=== PATIENT | female | born 1940 | race American Indian/Alaskan Native ===

== ENCOUNTER 2018-09-08 18:03 | Emergency (ER) | payer MEDICARE ==
[2018-09-08 20:02] LABS: Hematocrit 39.1 % (30.3-42.9); Hemoglobin 13.2 gm/dl (10.1-14.3); Mean Corpuscular HGB Conc 34 % (30-34); Mean Corpuscular Volume 96 fl (79-97); Platelet Count 594 K/mm3 (140-440); Red Blood Count 4.06 M/mm3 (3.65-5.03); Red Cell Distribution Width 18.2 % (13.2-15.2)
--- NOTE | 2018-09-08 20:11 | Emergency Department Report ---
ED General Adult HPI - General Chief complaint: Weakness Stated complaint: GENERAL WEAKNESS Time Seen by Provider: 09/08/18 20:10 Source: patient, EMS Mode of arrival: Stretcher Limitations: Physical Limitation - History of Present Illness -: Gradual, days(s) (7 days) Severity scale (0 -10): 0 Associated Symptoms: loss of appetite, weakness (Generalized weakness) Treatments Prior to Arrival: none - Related Data Previous Rx's Medication Instructions Recorded Last Taken Type Cephalexin [Keflex Oral Liq 250 500 mg PO Q8HR 10 Days #1 bottle 09/09/18 Unknown Rx mg/5 ML] Ondansetron [Zofran Odt] 4 mg PO Q8HR PRN #20 tab.rapdis 09/09/18 Unknown Rx Allergies Allergy/AdvReac Type Severity Reaction Status Date / Time No Known Allergies Allergy Unverified 08/20/16 12:00 ED Review of Systems ROS: Stated complaint: GENERAL WEAKNESS Other details as noted in HPI Comment: All other systems reviewed and negative Constitutional: malaise, weakness. denies: chills, fever Eyes: denies: eye pain, eye discharge, vision change ENT: denies: ear pain, throat pain Respiratory: denies: cough, shortness of breath, wheezing Cardiovascular: denies: chest pain, palpitations Endocrine: no symptoms reported Gastrointestinal: denies: abdominal pain, nausea, diarrhea Genitourinary: denies: urgency, dysuria, discharge Musculoskeletal: denies: back pain, joint swelling, arthralgia Skin: denies: rash, lesions Neurological: denies: headache, weakness, paresthesias Psychiatric: denies: anxiety, depression Hematological/Lymphatic: denies: easy bleeding, easy bruising ED Past Medical Hx - Past Medical History Hx Psychiatric Treatment: Yes (Anxiety) Hx Asthma: Yes Hx COPD: Yes - Surgical History Additional Surgical History: Hysterectomy - Social History Smoking Status: Never Smoker Substance Use Type: None - Medications Home Medications: Home Medications Medication Instructions Recorded Confirmed Last Taken Type Cephalexin [Keflex Oral Liq 250 500 mg PO Q8HR 10 Days #1 bottle 09/09/18 Unknown Rx mg/5 ML] Ondansetron [Zofran Odt] 4 mg PO Q8HR PRN #20 tab.rapdis 09/09/18 Unknown Rx ED Physical Exam - General Limitations: Physical Limitation General appearance: alert, in no apparent distress, cachectic - Head Head exam: Present: atraumatic, normocephalic - Eye Eye exam: Present: normal appearance, PERRL, EOMI, conjunctival injection (Bilateral conjunctivitis.) Pupils: Present: normal accommodation - ENT ENT exam: Present: normal exam, mucous membranes moist - Neck Neck exam: Present: normal inspection, full ROM. Absent: tenderness, mening ismus - Respiratory Respiratory exam: Present: normal lung sounds bilaterally. Absent: respiratory distress - Cardiovascular Cardiovascular Exam: Present: regular rate, normal rhythm. Absent: systolic murmur, diastolic murmur, rubs, gallop - GI/Abdominal GI/Abdominal exam: Present: soft, normal bowel sounds - Rectal Rectal exam: Present: deferred - Extremities Exam Extremities exam: Present: normal inspection, full ROM, normal capillary refill. Absent: pedal edema - Back Exam Back exam: Present: normal inspection, full ROM. Absent: tenderness - Neurological Exam Neurological exam: Present: alert, oriented X3, CN II-XII intact, other (GCS = 15. NIHSS = 0.) - Psychiatric Psychiatric exam: Present: normal affect, normal mood - Skin Skin exam: Present: warm, dry, intact, normal color. Absent: rash ED Course Vital Signs 09/08/18 09/08/18 09/08/18 19:12 19:15 19:30 Temperature 98.2 F Pulse Rate 118 H 115 H 107 H Respiratory 18 18 16 Rate Blood Pressure 119/78 119/78 O2 Sat by Pulse 100 100 Oximetry 09/08/18 09/08/18 09/08/18 19:46 20:00 20:38 Temperature Pulse Rate 107 H 100 H 95 H Respiratory 13 15 12 Rate Blood Pressure 106/83 103/80 O2 Sat by Pulse 99 100 100 Oximetry 09/08/18 09/08/18 09/08/18 20:45 21:00 21:15 Temperature Pulse Rate 98 H 97 H 96 H Respiratory 13 17 14 Rate Blood Pressure 114/74 109/88 116/82 O2 Sat by Pulse 100 100 100 Oximetry 09/08/18 09/08/18 09/08/18 21:30 21:45 22:00 Temperature Pulse Rate 94 H 96 H 99 H Respiratory 13 19 14 Rate Blood Pressure 110/77 120/81 112/73 O2 Sat by Pulse 100 100 100 Oximetry 01/09/08/18 09/08/18 22:16 22:30 22:46 Temperature Pulse Rate 110 H 95 H 94 H Respiratory 16 16 13 Rate Blood Pressure 119/98 100/72 109/88 O2 Sat by Pulse 100 100 100 Oximetry 09/09/18 00:03 Temperature Pulse Rate Respiratory Rate Blood Pressure 103/78 O2 Sat by Pulse 100 Oximetry - Reevaluation(s) Reevaluation #1: 09/09/18 00:29 Patient is feeling much better and ready to be discharged home with her family. ED Medical Decision Making - Lab Data Result diagrams: 09/08/18 19:18 09/08/18 19:18 Lab Results 09/08/18 09/08/18 09/08/18 Range/Units 19:18 19:18 19:18 WBC 9.1 (4.5-11.0) K/mm3 RBC 4.06 (3.65-5.03) M/mm3 Hgb 13.2 (10.1-14.3) gm/dl Hct 39.1 (30.3-42.9) % MCV 96 (79-97) fl MCH 33 H (28-32) pg MCHC 34 (30-34) % RDW 18.2 H (13.2-15.2) % Plt Count 594 H (140-440) K/mm3 PT 13.0 (12.2-14.9) Sec. INR 0.94 (0.87-1.13) Sodium 140 (137-145) mmol/L Potassium 3.1 L (3.6-5.0) mmol/L Chloride 99.8 (98-107) mmol/L Carbon Dioxide 24 (22-30) mmol/L Anion Gap 19 mmol/L BUN 15 (7-17) mg/dL Creatinine 0.5 L (0.7-1.2) mg/dL Estimated GFR > 60 ml/min BUN/Creatinine Ratio 30 % Glucose 136 H (65-100) mg/dL POC Glucose (70-105) Calcium 10.4 H (8.4-10.2) mg/dL Magnesium 1.80 (1.7-2.3) mg/dL Total Creatine Kinase 72 (30-135) units/L TSH (0.270-4.200) mlU/mL Salicylates (2.8-20.0) mg/dL Acetaminophen (10.0-30.0) ug/mL Plasma/Serum Alcohol (0-0.07) % 09/08/18 09/08/18 09/08/18 Range/Units 19:18 19:18 19:18 WBC (4.5-11.0) K/mm3 RBC (3.65-5.03) M/mm3 Hgb (10.1-14.3) gm/dl Hct (30.3-42.9) % MCV (79-97) fl MCH (28-32) pg MCHC (30-34) % RDW (13.2-15.2) % Plt Count (140-440) K/mm3 PT (12.2-14.9) Sec. INR (0.87-1.13) Sodium (137-145) mmol/L Potassium (3.6-5.0) mmol/L Chloride (98-107) mmol/L Carbon Dioxide (22-30) mmol/L Anion Gap mmol/L BUN (7-17) mg/dL Creatinine (0.7-1.2) mg/dL Estimated GFR ml/min BUN/Creatinine Ratio % Glucose (65-100) mg/dL POC Glucose (70-105) Calcium (8.4-10.2) mg/dL Magnesium (1.7-2.3) mg/dL Total Creatine Kinase (30-135) units/L TSH 0.818 (0.270-4.200) mlU/mL Salicylates < 0.3 L (2.8-20.0) mg/dL Acetaminophen < 5.0 L (10.0-30.0) ug/mL Plasma/Serum Alcohol (0-0.07) % 09/08/18 09/08/18 Range/Units 19:18 19:26 WBC (4.5-11.0) K/mm3 RBC (3.65-5.03) M/mm3 Hgb (10.1-14.3) gm/dl Hct (30.3-42.9) % MCV (79-97) fl MCH (28-32) pg MCHC (30-34) % RDW (13.2-15.2) % Plt Count (140-440) K/mm3 PT (12.2-14.9) Sec. INR (0.87-1.13) Sodium (137-145) mmol/L Potassium (3.6-5.0) mmol/L Chloride (98-107) mmol/L Carbon Dioxide (22-30) mmol/L Anion Gap mmol/L BUN (7-17) mg/dL Creatinine (0.7-1.2) mg/dL Estimated GFR ml/min BUN/Creatinine Ratio % Glucose (65-100) mg/dL POC Glucose 126 H (70-105) Calcium (8.4-10.2) mg/dL Magnesium (1.7-2.3) mg/dL Total Creatine Kinase (30-135) units/L TSH (0.270-4.200) mlU/mL Salicylates (2.8-20.0) mg/dL Acetaminophen (10.0-30.0) ug/mL Plasma/Serum Alcohol < 0.01 (0-0.07) % - EKG Data -: EKG Interpreted by Oh EKG shows normal: sinus rhythm Rate: normal (98) - EKG Data When compared to previous EKG there are: previous EKG unavailable Interpretation: nonspecific ST-T wave darrel, LVH 09/08/18 20:26 No STEMI. - Radiology Data Radiology results: report reviewed, image reviewed CT head showed mild atrophy o/w no acute findings. CT lumbar spine and CXR showed no acute findings. - Medical Decision Making UTI. Bacterial Conjuctivitis. Mild Dehydration. Hypokalemia. Critical Care Time: Yes Critical care time in (mins) excluding proc time.: 45 Critical care attestation.: If time is entered above; I have spent that time in minutes in the direct care of this critically ill patient, excluding procedure time. ED Disposition Clinical Impression: Generalized weakness, Acute hypokalemia UTI (urinary tract infection) Qualifiers: Urinary tract infection type: acute cystitis Hematuria presence: without hematuria Qualified Code(s): N30.00 - Acute cystitis without hematuria Acute conjunctivitis, bilateral Qualifiers: Acute conjunctivitis type: bacterial Qualified Code(s): H10.33 - Unspecified acute conjunctivitis, bilateral Chronic lower back pain Qualifiers: Back pain laterality: unspecified Sciatica presence: without sciatica Qualified Code(s): M54.5 - Low back pain; G89.29 - Other chronic pain Disposition: - TO HOME OR SELFCARE Is pt being admited?: No Does the pt Need Aspirin: No Condition: Stable Instructions: Urinary Tract Infection in Women (ED), Hypokalemia (ED), Conjunctivitis (ED), Dehydration (ED) Additional Instructions: Please follow up with Dr Lou Madrid tomorrow morning. Return to the ED if your condition worsens. Prescriptions: Cephalexin [Keflex Oral Liq 250 mg/5 ML] 500 mg PO Q8HR 10 Days #1 bottle Ondansetron [Zofran Odt] 4 mg PO Q8HR PRN #20 tab.rapdis PRN Reason: Nausea And Vomiting Referrals: PRIMARY CARE, [Primary Care Provider] - 3-5 Days HARSH MADRID MD [Staff Physician] - 3-5 Days Time of Disposition: 00:27
[2018-09-08 20:12] LABS: INR 0.94 (0.87-1.13)
[2018-09-08 20:21] LABS: BUN/Creatinine Ratio 30; Blood Urea Nitrogen 15 mg/dL (7-17); Calcium 10.4 mg/dL (8.4-10.2); Hemolysis Index 11
[2018-09-08] MEDS ORDERED: K-DUR PO ONE (20:24)
[2018-09-08] MEDS ORDERED: NACL 0.9% 1000 ML 1,000 ML IV ONE (20:30)
--- NOTE | 2018-09-08 20:44 | Cat Scan Report ---
FINAL REPORT EXAM: CT HEAD/BRAIN WO CON HISTORY: AMS TECHNIQUE: Standard unenhanced CT of the head at 5.0 millimeter axial increments. PRIORS: None. FINDINGS: The ventricular system is normal in size and configuration. There is mild cerebral atrophy. There is no evidence for mass lesion, mass effect, midline shift, acute intracranial hemorrhage, or a cute ischemia/ infarction. No evidence for acute skull fracture is seen. No abnormality in the overlying scalp soft tissues is seen. Visualized paranasal sinuses are clear. IMPRESSION: Mild atrophy. No acute intracranial process noted.
[2018-09-08 21:19] LABS: Albumin 3.5 g/dL (3.9-5); Bilirubin,Direct 0.4 mg/dL (0-0.2)
[2018-09-08] MEDS ORDERED: MAGNESIUM SULFATE 1 GM in NACL 0.9% 50 ML IV ONE (21:31)
--- NOTE | 2018-09-08 21:47 | XRay Report ---
FINAL REPORT EXAM: XR CHEST 1V AP HISTORY: Weakness TECHNIQUE: Frontal chest x-ray Comparison: None FINDINGS: Heart size is normal. Dextroscoliosis thoracolumbar spine. Lungs are hyperexpanded and hyperlucent with coarsening of the bronchovascular interstitium. No focal infiltrate. Osteopenic bones. Atherosclerotic aortic arch. IMPRESSION: Emphysema. Dextroscoliosis thoracolumbar spine. No acute infiltrate or evidence for mass.
[2018-09-08 22:16] LABS: Bacteria,Urine 4+ /HPF (Negative); Bilirubin,Urine NEG (Negative); Blood,Urine NEG (Negative); Color,Urine Amber (Yellow); Hyaline Casts,Urine 8 /LPF; Mucus,Urine 3+ /HPF; WBC,Urine > 182.0 /HPF (0.0-6.0)
[2018-09-08] MEDS ORDERED: ROCEPHIN/NS 1 GM/50 ML 1 GM/50 ML BAG IV ONE (22:35)
--- NOTE | 2018-09-08 23:49 | Cat Scan Report ---
FINAL REPORT PROCEDURE: CT LUMBAR SPINE WO CON TECHNIQUE: Computerized axial tomography of the lumbar spine was performed from T12 to the sacrum wi thout contrast material. HISTORY: pain COMPARISON: No prior studies are available for comparison. FINDINGS: There straightening of the lumbar spine. There are no fractures or malalignments. L1-2: There narrowing of the disc space. There is no disc herniation or spinal stenosis.. L2-3: No significant abnormality. L3-4: No significant abnormality. L4-5: There is mild disc bulging. There is bilateral facet hypertrophy. There is no spinal stenosis. There is mild bilateral foraminal stenosis.. L5-S1: There is mild disc bulging. There is bilateral facet hypertrophy. There is no spinal stenosis. There is mild bilateral foraminal stenosis... Other: Sacrum and sacroiliac joints are intact. The paraspinal soft tissues are unremarkable.. IMPRESSION: There is no acute traumatic injury. There are degenerative changes as described.
[2018-09-09 00:50] VITALS: BP 109/77
== END 2018-09-09 01:14 | disposition home or self-care (01) ==
LOC: ED 18:03
DX: N39.0 Urinary tract infection, site not specified (principal); E87.6 Hypokalemia; E86.0 Dehydration; H10.33 Unspecified acute conjunctivitis, bilateral; G89.29 Other chronic pain; M54.5 Low back pain; J44.9 Chronic obstructive pulmonary disease, unspecified; Z90.710 Acquired absence of both cervix and uterus
CPT/HCPCS: 36415; 70450; 71045; 72131; 80048; 80076; 81001; 82550; 82962; 83735; 84443; 84484; 85027; 85610; 87086; 93005; 93010; 96361; 96365; 96367; 99285; G0480; J0696; J3475; J7030; 80320; 99291

== ENCOUNTER 2018-10-06 11:17 | Emergency (ER) | payer MEDICARE ==
[2018-10-06] MEDS ORDERED: DUONEB *Not for PRN Use IH ONE (12:04)
[2018-10-06 12:33] LABS: Basophils % (Auto) 0.3 % (0.0-1.8); Eosinophils # (Auto) 0.4 K/mm3 (0.0-0.4); Eosinophils % (Auto) 3.8 % (0.0-4.3); Hematocrit 34.9 % (30.3-42.9); Hemoglobin 11.3 gm/dl (10.1-14.3); Lymphocytes # (Auto) 1.4 K/mm3 (1.2-5.4); Lymphocytes % (Auto) 14.8 % (13.4-35.0); Mean Corpuscular HGB Conc 32 % (30-34); Mean Corpuscular Volume 95 fl (79-97); Monocytes # (Auto) 0.7 K/mm3 (0.0-0.8); Monocytes % (Auto) 7.4 % (0.0-7.3); Platelet Count 498 K/mm3 (140-440); Red Blood Count 3.67 M/mm3 (3.65-5.03); Red Cell Distribution Width 17.5 % (13.2-15.2)
--- NOTE | 2018-10-06 12:39 | Emergency Department Report ---
ED General Adult HPI - General Chief complaint: Dyspnea/Respdistress Stated complaint: SOB/CHEST PAIN Time Seen by Provider: 10/06/18 11:45 Source: patient Mode of arrival: Ambulatory Limitations: No Limitations - History of Present Illness Initial comments: Patient presents immersed transmitter chief complaint of shortness of breath that started 3 or 4 days ago. Patient states she has a history of asthma and complains of feeling weak and tired as well. She denies any chest pain, normal pain, or headache. -: Gradual Radiation: other Severity scale (0 -10): 0 Improves with: none Worsens with: none Associated Symptoms: denies other symptoms, cough Treatments Prior to Arrival: none - Related Data Previous Rx's Medication Instructions Recorded Last Taken Type Cephalexin [Keflex Oral Liq 250 500 mg PO Q8HR 10 Days #1 bottle 09/09/18 Unknown Rx mg/5 ML] Ondansetron [Zofran Odt] 4 mg PO Q8HR PRN #20 tab.rapdis 09/09/18 Unknown Rx Gentamicin 0.3% Ophth Soln 2 drops OP Q4H #1 bottle 09/11/18 Unknown Rx Naphazoline HCl/Pheniramine 2 drops OP BID #1 bottle 09/11/18 Unknown Rx [Naphcon-A Eye Drops] Potassium Chloride [K-Dur] 10 meq PO QDAY #5 tablet 10/06/18 Unknown Rx Prednisone [predniSONE 10 mg 10 mg PO .TAPER #1 tab.ds.pk 10/06/18 Unknown Rx (6-Day Pack, 21 Tabs)] Allergies Allergy/AdvReac Type Severity Reaction Status Date / Time No Known Allergies Allergy Unverified 08/20/16 12:00 ED Review of Systems ROS: Stated complaint: SOB/CHEST PAIN Other details as noted in HPI Comment: All other systems reviewed and negative Constitutional: denies: chills, fever Eyes: denies: eye pain, eye discharge, vision change ENT: denies: ear pain, throat pain Respiratory: shortness of breath. denies: cough, wheezing Cardiovascular: denies: chest pain, palpitations Endocrine: no symptoms reported Gastrointestinal: denies: abdominal pain, nausea, diarrhea Genitourinary: denies: urgency, dysuria, discharge Musculoskeletal: denies: back pain, joint swelling, arthralgia Skin: denies: rash, lesions Neurological: denies: headache, weakness, paresthesias Psychiatric: denies: anxiety, depression Hematological/Lymphatic: denies: easy bleeding, easy bruising ED Past Medical Hx - Past Medical History Previous Medical History?: Yes Hx GERD: Yes (acid reflux) Hx Arthritis: Yes Hx Seizures: Yes Hx Psychiatric Treatment: Yes (Anxiety) Hx Asthma: Yes Hx COPD: Yes Hx Dementia: Yes - Surgical History Past Surgical History?: Yes Additional Surgical History: Hysterectomy - Social History Smoking Status: Former Smoker Substance Use Type: None - Medications Home Medications: Home Medications Medication Instructions Recorded Confirmed Last Taken Type Cephalexin [Keflex Oral Liq 250 500 mg PO Q8HR 10 Days #1 bottle 09/09/18 Unknown Rx mg/5 ML] Ondansetron [Zofran Odt] 4 mg PO Q8HR PRN #20 tab.rapdis 09/09/18 Unknown Rx Gentamicin 0.3% Ophth Soln 2 drops OP Q4H #1 bottle 09/11/18 Unknown Rx Naphazoline HCl/Pheniramine 2 drops OP BID #1 bottle 09/11/18 Unknown Rx [Naphcon-A Eye Drops] Potassium Chloride [K-Dur] 10 meq PO QDAY #5 tablet 10/06/18 Unknown Rx Prednisone [predniSONE 10 mg 10 mg PO .TAPER #1 tab.ds.pk 10/06/18 Unknown Rx (6-Day Pack, 21 Tabs)] ED Physical Exam - General Limitations: No Limitations General appearance: alert, in no apparent distress - Head Head exam: Present: atraumatic, normocephalic - Eye Eye exam: Present: normal appearance, PERRL, EOMI - ENT ENT exam: Present: mucous membranes moist - Neck Neck exam: Present: normal inspection - Respiratory Respiratory exam: Present: normal lung sounds bilaterally. Absent: respiratory distress, wheezes, rales, rhonchi - Cardiovascular Cardiovascular Exam: Present: regular rate, normal rhythm. Absent: systolic murmur, diastolic murmur, rubs, gallop - GI/Abdominal GI/Abdominal exam: Present: soft, normal bowel sounds. Absent: distended, tenderness - Extremities Exam Extremities exam: Present: normal inspection - Back Exam Back exam: Present: normal inspection - Neurological Exam Neurological exam: Present: alert, oriented X3, CN II-XII intact. Absent: motor sensory deficit - Psychiatric Psychiatric exam: Present: normal affect, normal mood - Skin Skin exam: Present: warm, dry, intact, normal color. Absent: rash ED Course Vital Signs 10/06/18 10/06/18 11:46 13:51 Pulse Rate 104 H 99 H Respiratory 18 17 Rate Blood Pressure 90/50 Blood Pressure 90/50 93/60 [Left] O2 Sat by Pulse 98 99 Oximetry ED Medical Decision Making - Lab Data Result diagrams: 10/06/18 12:07 10/06/18 12:07 Lab Results 10/06/18 10/06/18 10/06/18 Range/Units 12:07 12:07 12:07 WBC 9.6 (4.5-11.0) K/mm3 RBC 3.67 (3.65-5.03) M/mm3 Hgb 11.3 (10.1-14.3) gm/dl Hct 34.9 (30.3-42.9) % MCV 95 (79-97) fl MCH 31 (28-32) pg MCHC 32 (30-34) % RDW 17.5 H (13.2-15.2) % Plt Count 498 H (140-440) K/mm3 Lymph % (Auto) 14.8 (13.4-35.0) % Posey % (Auto) 7.4 H (0.0-7.3) % Eos % (Auto) 3.8 (0.0-4.3) % Baso % (Auto) 0.3 (0.0-1.8) % Lymph # 1.4 (1.2-5.4) K/mm3 Posey # 0.7 (0.0-0.8) K/mm3 Eos # 0.4 (0.0-0.4) K/mm3 Baso # 0.0 (0.0-0.1) K/mm3 Seg Neutrophils % 73.7 H (40.0-70.0) % Seg Neutrophils # 7.1 (1.8-7.7) K/mm3 Sodium 137 (137-145) mmol/L Potassium 2.9 L* (3.6-5.0) mmol/L Chloride 97.7 L (98-107) mmol/L Carbon Dioxide 25 (22-30) mmol/L Anion Gap 17 mmol/L BUN 5 L (7-17) mg/dL Creatinine 0.4 L (0.7-1.2) mg/dL Estimated GFR > 60 ml/min BUN/Creatinine Ratio 13 % Glucose 99 (65-100) mg/dL Calcium 8.6 (8.4-10.2) mg/dL Magnesium 1.20 L (1.7-2.3) mg/dL Total Bilirubin 0.60 (0.1-1.2) mg/dL AST 19 (5-40) units/L ALT 8 (7-56) units/L Alkaline Phosphatase 60 (35-129) units/L Total Protein 6.1 L (6.3-8.2) g/dL Albumin 2.9 L (3.9-5) g/dL Albumin/Globulin Ratio 0.9 % - Radiology Data Radiology results: report reviewed - Medical Decision Making Discussed results with the patient Critical care attestation.: If time is entered above; I have spent that time in minutes in the direct care of this critically ill patient, excluding procedure time. ED Disposition Clinical Impression: Emphysema of lung, Hypokalemia Disposition: TO HOME OR SELFCARE Is pt being admited?: No Does the pt Need Aspirin: No Condition: Fair Instructions: Chronic Obstructive Pulmonary Disease (ED), Emphysema (ED) Additional Instructions: return if worse Prescriptions: Potassium Chloride [K-Dur] 10 meq PO QDAY #5 tablet Prednisone [predniSONE 10 mg (6-Day Pack, 21 Tabs)] 10 mg PO .TAPER #1 tab.ds.pk Referrals: HARSH MADRID MD [Primary Care Provider] - 3-5 Days [facility] [Provider Group] - 3-5 Days [facility] [Provider Group] - 3-5 Days [facility] [Provider Group] - 3-5 Days [facility] [Outside] - 3-5 Days ESTHER HARPER DO [Staff Physician] - 3-5 Days GERTRUDE SALEH MD [Staff Physician] - 3-5 Days Time of Disposition: 15:31
--- NOTE | 2018-10-06 12:44 | XRay Report ---
AP CHEST: HISTORY: Short of breath The lungs are markedly hyperinflated consistent with advanced emphysema. No evidence for pneumonia, pleural effusion or pneumothorax. Normal heart size. Scoliosis is noted. No change since 09/08/18. IMPRESSION: Emphysema.
[2018-10-06 12:51] LABS: Alanine Aminotransferase 8 units/L (7-56); Albumin 2.9 g/dL (3.9-5); BUN/Creatinine Ratio 13; Blood Urea Nitrogen 5 mg/dL (7-17); Calcium 8.6 mg/dL (8.4-10.2); Hemolysis Index 35
[2018-10-06] MEDS ORDERED: K-DUR PO ONE ×3 (13:18→14:18)
[2018-10-06 13:52] VITALS: BP 93/60
[2018-10-06] MEDS ORDERED: NACL 0.9% 1000 ML 1,000 ML ONE (14:57)
[2018-10-06] MEDS ORDERED: MAGNESIUM SULFATE 1 GM in NACL 0.9% 50 ML IV ONE (15:00)
[2018-10-06] MEDS: KCL 10MEQ/100ML 10 MEQ/100 ML BAG IV SCH ×2 (15:16→15:35)
== END 2018-10-06 16:52 | disposition home or self-care (01) ==
LOC: ED 11:17
DX: J44.9 Chronic obstructive pulmonary disease, unspecified (principal); E87.6 Hypokalemia; K21.9 Gastro-esophageal reflux disease without esophagitis; M19.90 Unspecified osteoarthritis, unspecified site; Z90.710 Acquired absence of both cervix and uterus; Z87.891 Personal history of nicotine dependence
CPT/HCPCS: 36415; 71045; 80053; 83735; 85025; 94640; 96365; 96367; 99284; J3475; J3480; J7030; 99291